=== PATIENT | female | born 1975 | race Caucasian/White ===

== ENCOUNTER → 2021-07-21 | Outpatient (CLI) | payer OTHER ==
[~2021-07-21] MED LIST: DIPH25CA58 PO; HYDR-2761 PO; LEXAPRO10 MG PO; OMEP20TA63 PO
[2021-07-21 14:37] LABS: BASO # 0.1 x10^3/uL (0.0-0.2); BASO % 1 % (0-3); EOS # 0.1 x10^3/uL (0.0-0.7); EOS % 2 % (0-3); HEMATOCRIT 41.2 % (36.0-47.0); HEMOGLOBIN 13.9 g/dL (12.0-15.5); LYMPH # 1.8 x10^3/uL (1.0-4.8); LYMPH % 32 % (24-48); MEAN CORPUSCULAR HEMOGLOBIN 31 pg (25-35); MEAN CORPUSCULAR HGB CONC 34 g/dL (31-37); MEAN CORPUSCULAR VOLUME 92 fL (79-100); MONO # 0.3 x10^3/uL (0.0-1.1); MONO % 6 % (0-9); NEUT # 3.3 x10^3/uL (1.8-7.7); NEUT % 59 % (31-73); PLATELET COUNT 296 x10^3/uL (140-400); RED BLOOD COUNT 4.48 x10^6/uL (3.50-5.40); RED CELL DISTRIBUTION WIDTH 12.4 % (11.5-14.5); WHITE BLOOD COUNT 5.5 x10^3/uL (4.0-11.0)
[2021-07-21 15:00] LABS: AMORPHOUS SEDIMENT,UR PRESENT /HPF; BACTERIA,URINE FEW /HPF (0-FEW); RBC,URINE 0 /HPF (0-2); WBC,URINE 0 /HPF (0-4)
== END ==
LOC: SURGPAT 14:03
PROVIDERS: ATTEND Obstetrics & Gynecology
DX: Z01.812 Encounter for preprocedural laboratory examination (principal); N39.3 Stress incontinence (female) (male)
CPT/HCPCS: 36415; 81001; 85025

== ENCOUNTER 2021-07-28 07:02 | Day surgery (SDC) | payer OTHER ==
[2021-07-21 14:43] VITALS: BP 107/60
[~2021-07-28] VITALS: Ht 160 cm; Wt 66.3 kg
[~2021-07-28 07:02] MED LIST changes: +DEXAMETHASONE SOD PHOS 4 MG/ML VIAL ONE; -HYDR-2761 PO; +HYDROmorphone 2 MG/ML INJ. IVP PRN; +IV RINGERS,LACTATED 1000ML 1,000 ML IV SCH; +MORPHINE SULFATE 2 MG/ML INJ. IVP PRN; +ONDANSETRON PF 4 MG/2 ML VIAL. ONE; +PROCHLORPERAZINE 10 MG/2 ML VIAL. IVP PRN; +PROPOFOL 10 MG/ML (20ML) VIAL. IV ONE; +SUCCINYLCHOLINE 200 MG/10 ML VIAL. ONE; +fentaNYL PF VIAL 100 MCG/2 ML VIAL IVP PRN; +fentaNYL PF VIAL 100 MCG/2 ML VIAL ONE
[2021-07-28 07:16] VITALS: BP 115/57
[2021-07-28] MEDS ORDERED: BUPIVACAINE-EPI 0.25%-1:200000 MPF 30 ML VIAL. ONE (08:04)
[2021-07-28] MEDS ORDERED: 0.9 % SODIUM CHLORIDE 20 ML VIAL. IJ ONE ×2 (09:09→09:15)
[2021-07-28] MEDS ORDERED: HYDROmorphone 2 MG/ML INJ. ONE (09:09)
[2021-07-28] MEDS ORDERED: PHENYLEPHRINE in 0.9% NACL PF 1 MG/10 ML SYRINGE. IV ONE (09:12)
[2021-07-28] MEDS ORDERED: ESTROGENS, CONJ VAGINAL CREAM 30GM TUBE. ONE (10:20)
--- NOTE | 2021-07-28 10:44 | PDOC4 ---
BRIEF OPERATIVE NOTE Date: Jul 28, 2021 Pre-Op Diagnosis Genuine urinary stress incont.; cystocele Post-Op Diagnosis same Procedure Performed anterior repair, TVT abbrevo bladder sling with cystoscopy Surgeon Dr. Chakraborty Manager [employer] ERIN Ramirez Anesthesiologist Dr. Elias Anesthesia Type: General Blood Loss 50cc IV Fluid 1400cc Urine Output 50cc clear prior to cysto Specimens Obtained none Findings 2-3 cystocele; uretheral hypermobility, normal bladder when cystoscopy performed Complications none Operative Note [id number] CRISTOBAL CHAKRABORTY MD Jul 28, 2021 10:44
[2021-07-28] MEDS ORDERED: NALOXONE 0.4 MG/ML VIAL. IV PRN (10:45)
[2021-07-28] MEDS ORDERED: SIMETHICONE 80 MG TAB.CHEW PO PRN (10:45)
[2021-07-28] MEDS ORDERED: CALCIUM CARBONATE 500 MG TAB.CHEW PO PRN (10:45)
[2021-07-28] MEDS ORDERED: MAG HYDROX/ALUMINUM HYD/SIMETH 30 ML ORAL.SUSP PO PRN (10:45)
[2021-07-28] MEDS ORDERED: HYDROcodone/APAP 5/325MG 1 TAB TABLET PO PRN (10:45)
[2021-07-28] MEDS ORDERED: diphenhydrAMINE 50 MG/ML VIAL IV PRN (10:45)
[2021-07-28] MEDS ORDERED: 0.9 % SODIUM CHLORIDE 10 ML DISP.SYRIN. IV PRN (10:45)
[2021-07-28] MEDS ORDERED: diphenhydrAMINE HCL 25 MG CAPSULE PO PRN (10:45)
[2021-07-28] MEDS ORDERED: HYDR-2761 PO (10:53)
[2021-07-28] MEDS ORDERED: fentaNYL PF VIAL 100 MCG/2 ML VIAL ONE (10:58)
[2021-07-28] MEDS: fentaNYL PF VIAL 100 MCG/2 ML VIAL IVP PRN ×2 (11:01→11:08)
[2021-07-28 11:30] VITALS: BP 105/62
--- NOTE | 2021-07-28 14:42 | OP ---
DATE OF SURGERY: 07/28/2021 PREOPERATIVE DIAGNOSIS: Genuine stress urinary incontinence and a cystocele. POSTOPERATIVE DIAGNOSIS: Genuine stress urinary incontinence and a cystocele. PROCEDURES: Anterior colporrhaphy, TVT Abbrevo, bladder sling with cystoscopy. SURGEON: Rosita Duque MD. FRONTLOAD DRIVER: Mariangel Gill, kimmy assistant plant control operator. ANESTHESIOLOGIST: Bello Elias MD. ANESTHESIA: General. BLOOD LOSS: 50 mL. URINE OUTPUT: 50 mL clear via Lux prior to cystoscopy. IV FLUIDS: 1400 mL of crystalloid. SPECIMENS: None. FINDINGS: Second-to third-degree cystocele, urethral hypermobility and a normal bladder when cystoscopy was performed. COMPLICATIONS: None. DESCRIPTION OF PROCEDURE: This patient was taken to the operating room where general anesthesia was placed. The patient was placed in dorsal lithotomy position in Larry stirrups. The patient's vagina was prepped and draped in the normal sterile fashion and a Lux catheter had been inserted under sterile technique. Upon my arrival, a timeout was performed. Once everyone agreed on the patient, the site, the procedure, the antibiotics, the procedure was initiated. A weighted speculum was placed in the patient's vagina. Under relaxation she definitely had a second if not a little bit worse cystocele, so it was decided to go ahead and proceed with repair of this as discussed if it was pronounced under anesthesia. So, Allis clamps were placed approximately 1 to 2 cm above the cervical opening and a total of 47 mL of a dilute 3 parts injectable saline to 1 part 0.25% width was used to inject the anterior repair, suburethral and out laterally for the sling. The whole area was injected first. At this point, the scalpel was used to make a small vertical incision over where we had injected over the anterior bladder defect and Allis clamps were placed on both sides of this. The Metzenbaum scissors were used to gently open up the defect and Allis clamps were placed. I stopped approximately 1.5 to 2 cm below the urethra where the rugae still were to leave room for the bladder sling. So once this was opened, the Allises were fanned out on both sides sharp and bluntly. The Metzenbaums were used to release it and then an open Ray-Jesús 4 x 4 was used to gently peel off the anterior vaginal wall from the bladder defect below on both sides. Once it was greatly reduced, there was some slight bleeding on the right side. Bovie cautery and a small superficial stitch was used for hemostasis here with excellent results. At this point, interrupted 2-0 Vicryl sutures were placed about 5 of them to reduce the defect, tagging them and then going back and gently pushing the defect up with the curved Catalina and bringing together the 2-0 Vicryl sutures and reducing the defect. Once this was done, when we got past that area of bleeding, I did place a tiny bit of FloSeal over the area that was bleeding with excellent results. The bleeding was completely gone. At this point, once the bladder defect was removed, the Allis clamps were fanned out and the anterior vaginal wall that was redundant was trimmed off on both sides a little bit and then a full length 2-0 Vicryl was used to close the anterior vaginal mucosa again with a running locked full length 2-0 Vicryl suture. Once this was done, the anterior defect was done. A marker was used to draw out laterally from the urethra, draw 2 cm up, align on both sides, which was approximately the level of the clitoris and then going 2 cm out from the groin, the lateral crural fold, marking where the sling should be. Again, I had already injected the mid urethral area as well as laterally out injecting and withdrawing to make sure we were in the vessels and this was already done. So, approximately 1 centimeter below the urethra, an Allis clamp was placed. A small vertical 1 cm incision was done, placing Allis clamps on both sides of this using the Metzenbaums to dissect out laterally to the obturator foramen on both sides. Once this was done, going kind of right under and staying superficial and opening up and dissecting superficially, the wing guide applicator was placed on both sides to make sure we were in and dissected well. Once this was assured, starting on the patient's right side, it was placed in. The sling was obtained, going in through the wing guide applicator, placing it through the obturator, it came out right at the expected location, making a small yifan in the skin, popping the white guide through, removing the wing guide applicator, grasping the white tip of the sling with a curved Catalina and taking out the curved handheld applicator and pulling it through. This was done exactly the same on the left side, placing the wing guide applicator in, making sure the sling was not twisted or folded, placing it through the left side, taking it around the obturator foramen, came out right at the expected marked on the skin, making a small yifan in the skin, pushing it through, grabbing it with a curved Catalina clamp, taking out the wing guide applicator and then removing the handheld from the sling itself. Once this was done, it was pulled through, not tight, but making sure it was the Prolene marker, was in the mid urethral area, it was not tight, it was not twisted in any way. There was no buttonholing in either vaginal opening. The cystoscopy was performed. Over 400-500 mL of fluid was placed in, the bladder bubble was seen. There was no blood, no trauma, no sling. Both ureteral openings were clearly seen. So at this point, the cystoscopy was ended. Some of the fluid was evacuated. Getting a 6/7 Hegar dilator, placing it in, snugging the sling up and around that, making that Prolene suture right in the middle, cutting off the white and placing the curved Kellys over the plastic sheaths, removing those, using the Prolene to make sure it was snug and in the right spot, then removing both Prolene guides from each of the lateral folds and then clipping that Prolene guide in the middle, removing the dilator. FloSeal was placed over both sides of the bladder sling respectively. There was no bleeding from the groin areas. These were cleaned and closed with skin glue, SurgiSeal and then once the FloSeal had been used over the suburethral sling area, it was closed in a 2-layer closure, first with Monocryl in a subcuticular fashion and then 2-0 Vicryl over the top. Once this was done, all sponge, lap and needle counts were correct x 2 by OR personnel. I did get a vaginal packing with Premarin cream and place it in. She was cleaned up and there was no active bleeding and the procedure was ended. Again, all sponge, lap and needle counts were correct x 2 by OR personnel. The patient was awakened from anesthesia and brought to recovery room in stable condition. SUDHIR/NAY/MERY DR: SUDHIR/carlito TID: [id number]
== END 2021-07-28 11:50 | disposition home or self-care (01) ==
LOC: SURG 07:02 → EDUNIT# 08:30 → SURG 11:50
PROVIDERS: ATTEND Obstetrics & Gynecology
DX: N39.3 Stress incontinence (female) (male) (principal); N81.10 Cystocele, unspecified; K21.9 Gastro-esophageal reflux disease without esophagitis; F41.9 Anxiety disorder, unspecified; F32.9 Major depressive disorder, single episode, unspecified; Z79.899 Other long term (current) drug therapy; Z98.51 Tubal ligation status; Z98.890 Other specified postprocedural states
CPT/HCPCS: 57240; 81025; A4213; A4314; A4930; C1771; J0330; J0690; J1100; J1170; J2370; J2405; J2704; J3010; J3490